=== PATIENT | male | born 1960 | race Caucasian/White ===

== ENCOUNTER 2018-06-21 08:58 | Emergency (ER) | payer OTHER ==
[2018-06-21] MEDS ORDERED: FENTANYL CITR 100 MCG/2 ML ONE (10:07)
[2018-06-21] MEDS ORDERED: NA CHLORIDE 0.9% 1,000 ML ONE (10:08)
[2018-06-21 10:28] LABS: Absolute Lymphocytes (CBC) 1.4 K/uL (0.7-4.9); Absolute Monocytes 1.1 K/uL (0.1-1.3); Absolute Neutrophil 9.9 K/uL (1.8-8.0); Basophils % 0.5 % (0-1.3); Eosinophils % 0.8 % (0-4.4); Hematocrit 41.5 % (39.6-49.0); Lymphocytes % 11.1 % (15.3-44.8); MPV 7.7 fL (7.6-11.3); Monocytes % 8.8 % (3.3-12.3); RBC Red Blood Cell Count 4.59 M/uL (4.33-5.43)
[2018-06-21] MEDS ORDERED: CLINDAMYCIN INJ 300 MG in NA CHLORIDE 0.9% 50 ML IV ONE (10:30)
[2018-06-21 10:43] LABS: BUN Blood Urea Nitrogen 11 mg/dL (7-18); Bicarbonate 28 mmol/L (21-32); Glucose Level 116 mg/dL (74-106); Potassium 3.8 mmol/L (3.5-5.1); Sodium Level 139 mmol/L (136-145)
--- NOTE | 2018-06-21 10:57 | RAD REPORT ---
EXAM DESCRIPTION: Ann Oneal (2 Views)06/21/2018 10:28 am CLINICAL HISTORY: Chest swelling COMPARISON: None FINDINGS: The lungs appear clear of acute infiltrate. The heart is normal size IMPRESSION: No acute abnormalities displayed
--- NOTE | 2018-06-21 11:32 | RAD REPORT ---
EXAM DESCRIPTION: CT - Soft Tissue Neck W/Contr - 06/21/2018 11:15 am CLINICAL HISTORY: Facial pain and swelling, toothache -right-side TECHNIQUE: During dynamic enhancement using 100 milliliters nonionic IV contrast, axial 5 millimeter thick images of the neck were obtained. All CT scans are performed using dose optimization technique as appropriate and may include automated exposure control or mA/KV adjustment according to patient size. FINDINGS: Mastoid air cells and paranasal sinuses are clear. There is left deviation of the anterior nasal septum and right deviation of the mid posterior aspect of the nasal septum. No globe or orbita l content abnormality. Intracranial portion of the examination is unremarkable. No facial fracture. No bone destructive process identifiable. Condyles of the mandible are normally p ositioned. No pharyngeal mucosal mass or asymmetry. Parapharyngeal fat is normal in appearance. No tonsillar or tongue base abnormality. Epiglottis is normal. No laryngeal abnormality seen. No periodontal abscess identified. There is dental decay present but no associated bone destruction o r convincing evidence for an associated soft tissue component. Patient does have edematous stranding in the fatty tissues on the right side of the face near the mass outer muscle and more inferiorly reji ng the mandible. The edema changes are both superficial and deep to the platysma. Right-side mass out er muscle appear slightly thickened and edematous when compared with the left. Pterygoid musculature on the medial margin of the mandible unremarkable and similar to the left side. Patient has several small reactive lymph nodes in the right side of the neck. No bulky lymphadenopath y. Parotid and submandibular gland tissue show no suspicious finding. No thyroid gland abnormality. IMPRESSION: Right-sided edematous/inflammatory stranding in the fatty tissues and edema change in th e right mass outer muscle. Patient has reactive lymph nodes in the right-side of the neck 12 mm or less in size. Dental decay is evident but no periodontal abscess identifiable.
--- NOTE | 2018-06-21 11:41 | EDPHYS ---
Physician Documentation [facility] Name: Keenan Tate Jr Age: 57 yrs Sex: Male : 1960 Arrival Date: 06/21/2018 Time: 09:01 Bed 20 Private MD: ED Physician Montrell Garrison HPI: 06/21 10:33 This 57 yrs old Male presents to ER via Ambulatory with complaints of Facial snw Swelling. 10:33 Onset: The symptoms/episode began/occurred suddenly, 3 day(s) ago, and became worse and snw became persistent. Associated signs and symptoms: Pertinent positives: fever. The patient has not experienced similar symptoms in the past. pt rec'd Bicillin went to dentist, was placed on amoxil. 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 - Social history:: Smoking status: Patient uses tobacco products, smokes one-half pack cigarettes per day, chewing tobacco. - Ebola Screening: : Patient denies travel to an Ebola-affected area in the 21 days before illness onset. ROS: 10:32 Constitutional: Negative for fever, chills, and weight loss, Eyes: Negative for injury, snw pain, redness, and discharge, Neck: Negative for injury, pain, and swelling, Cardiovascular: Negative for chest pain, palpitations, and edema, Respiratory: Negative for shortness of breath, cough, wheezing, and pleuritic chest pain, Abdomen/GI: Negative for abdominal pain, nausea, vomiting, diarrhea, and constipation, Back: Negative for injury and pain, : Negative for injury, bleeding, discharge, and swelling, MS/Extremity: Negative for injury and deformity, Skin: Negative for injury, rash, and discoloration, Neuro: Negative for headache, weakness, numbness, tingling, and seizure. 10:32 ENT: Positive for dental pain. Exam: 10:28 Constitutional: This is a well developed, well nourished patient who is awake, alert, snw and in no acute distress. Eyes: Pupils equal round and reactive to light, extra-ocular motions intact. Lids and lashes normal. Conjunctiva and sclera are non-icteric and not injected. Cornea within normal limits. Periorbital areas with no swelling, redness, or edema. Neck: Trachea midline, no thyromegaly or masses palpated, and no cervical lymphadenopathy. Supple, full range of motion without nuchal rigidity, or vertebral point tenderness. No Meningismus. Chest/axilla: Normal chest wall appearance and motion. Nontender with no deformity. No lesions are appreciated. 10:28 Abdomen/GI: Soft, non-tender, with normal bowel sounds. No distension or tympany. No guarding or rebound. No evidence of tenderness throughout. Back: No spinal tenderness. No costovertebral tenderness. Full range of motion. Skin: Warm, dry with normal turgor. Normal color with no rashes, no lesions, and no evidence of cellulitis. MS/ Extremity: Pulses equal, no cyanosis. Neurovascular intact. Full, normal range of motion. Neuro: Awake and alert, GCS 15, oriented to person, place, time, and situation. Cranial nerves II-XII grossly intact. Motor strength 5/5 in all extremities. Sensory grossly intact. Cerebellar exam normal. Normal gait. Psych: Awake, alert, with orientation to person, place and time. Behavior, mood, and affect are within normal limits. 10:28 Head/face: Noted is swelling, that is moderate, of the right jaw, right cheek and right mandible. 10:28 ENT: External ear(s): are unremarkable, Ear canal(s): are normal, TM's: are normal, Nose: is normal, Mouth: is normal, (-) trismus Dental exam: dental caries, that is moderate, diffusely. 10:28 Cardiovascular: Rate: tachycardic, Rhythm: regular, Heart sounds: normal. 10:28 ECG was reviewed by the Attending Physician. Vital Signs: 09:09 BP 136 / 88; Pulse 111; Resp 18; Temp 97.4(TE); Pulse Ox 96% on R/A; Pain 10/10; tw2 09:09 tw2 10:23 BP 139 / 85; Pulse 89; Resp 18; Pulse Ox 98% ; bp 11:22 BP 131 / 80; Pulse 96; Resp 18; Pulse Ox 96% on R/A; mh5 12:01 BP 139 / 80; Pulse 99; Resp 16; Pulse Ox 97% ; bp 09:09 "a 12 " tw2 MDM: 09:25 Patient medically screened. snw 11:46 Data reviewed: vital signs, nurses notes. Data interpreted: Pulse oximetry: on room air snw is 96 %. Interpretation: acceptable. Counseling: I had a detailed discussion with the patient and/or guardian regarding: the historical points, exam findings, and any diagnostic results supporting the discharge/admit diagnosis, the presence of at least one elevated blood pressure reading (>120/80) during this emergency department visit, lab results, radiology results, the need for outpatient follow up, to return to the emergency department if symptoms worsen or persist or if there are any questions or concerns that arise at home. Special discussion: I have referred the patient to see his PCP for further evaluation of high blood pressure. I discussed in detail with the patient the higher chance of wound infection based on his presenting history. Based on the history and exam findings, there is no indication for further emergent testing or inpatient evaluation. I discussed with the patient/guardian the need to see a dentist for further evaluation of the symptoms. I discussed with the patient/guardian the need to see the primary care provider for further evaluation of the symptoms. 06/21 09:49 Order name: Blood Culture* snw 06/21 09:49 Order name: CBC with Diff; Complete Time: 10:56 snw 06/21 09:26 Order name: Chest Pa And Lat (2 Views) XRAY; Complete Time: 11:19 snw 06/21 09:49 Order name: Chem 7; Complete Time: 10:51 snw 06/21 09:49 Order name: Sed Rate; Complete Time: 10:56 snw 06/21 09:49 Order name: Procalcitonin; Complete Time: 10:57 snw 06/21 09:49 Order name: EKG; Complete Time: 09:50 snw 06/21 09:49 Order name: EKG - Nurse/Tech; Complete Time: 10:23 snw 06/21 10:51 Order name: Soft Tissue Neck W/Contr CT; Complete Time: 11:34 snw EC:28 Rate is 97 beats/min. Rhythm is regular. QRS Barney is Normal. NM interval is normal. QRS snw interval is normal. QT interval is normal. No Q waves. T waves are Normal. Clinical impression: Normal ECG. Administered Medications: 10:00 Drug: NS 0.9% 1000 ml Route: IV; Rate: 1 bolus; Site: right antecubital; bp 11:58 Follow up: IV Status: Completed infusion; IV Intake: 1000ml bp 10:00 Drug: fentaNYL (PF) 50 mcg Route: IVP; Site: right antecubital; bp 11:47 Follow up: Response: Pain is decreased bp 10:43 Drug: Clindamycin 300 mg Route: IVPB; Infused Over: 30 mins; Site: right antecubital; bp 11:58 Follow up: IV Status: Completed infusion; IV Intake: 100ml bp 11:45 Drug: Decadron - Dexamethasone 10 mg Route: IVP; Site: right antecubital; bp 11:58 Follow up: Response: No adverse reaction bp Disposition: 20:37 Co-signature as Attending Physician, Montrell Garrison MD Available for consultation at ps1 all times . Disposition: 06/21/18 11:40 Discharged to Home. Impression: Cellulitis of face. - Condition is Stable. - Discharge Instructions: Cellulitis, Adult, Dental Caries, Adult, Heat Therapy. - Prescriptions for Clindamycin HCl 300 mg Oral Capsule - take 1 capsule by ORAL route every 6 hours for 10 days; 40 capsule. Tylenol- Codeine #3 300-30 mg Oral Tablet - take 2 tablets by ORAL route every 6 hours As needed; 16 tablet. Medrol (Elbert) 4 mg Oral Tablets, Dose Pack - take 1 tablet by ORAL route as directed - follow package instructions; 1 packet. - Work release form, Medication Reconciliation Form, Thank You Letter, Antibiotic Education, Prescription Opioid Use form. - Follow up: Private Physician; When: 2 - 3 days; Reason: Recheck today's complaints, Continuance of care, Re-evaluation by your physician. Follow up: Emergency Department; When: As needed; Reason: Worsening of condition. Signatures: Dispatcher [employer] Sonam Ramey, MAGO PLASMA TABLE OPERATOR-Low Corrine Orta, RN RN tw2 Viral Carrasco, RN RN Montrell Melgar MD MD ps1 Corrections: (The following items were deleted from the chart) 12:02 11:40 06/21/2018 11:40 Discharged to Home. Impression: Cellulitis of face. Condition is bp Stable. Forms are Medication Reconciliation Form, Thank You Letter, Antibiotic Education, Prescription Opioid Use. Follow up: Private Physician; When: 2 - 3 days; Reason: Recheck today's complaints, Continuance of care, Re-evaluation by your physician. Follow up: Emergency Department; When: As needed; Reason: Worsening of condition. snw
--- NOTE | 2018-06-21 11:41 | ER ---
Nurse's Notes [facility] Name: Keenan Tate Jr Age: 57 yrs Sex: Male : 1960 Arrival Date: 06/21/2018 Time: 09:01 Bed 20 Private MD: Diagnosis: Cellulitis of face Presentation: 06/21 09:07 Presenting complaint: Significant other states: this past week, he started having a tw2 tooth ache, after it started swelling we went to ER [place] got on antibiotic, went to dentist yesterday and he wanted him to come to ER again, his neck and face is more swollen, he feels like his nose is swelling shut and up into his ear, its getting worse and not better. Transition of care: patient was not received from another setting of care. Onset of symptoms was June 21, 2018. Risk Assessment: Do you want to hurt yourself or someone else? Patient reports no desire to harm self or others. Initial Sepsis Screen: Does the patient meet any 2 criteria? No. Patient's initial sepsis screen is negative. Does the patient have a suspected source of infection? No. Patient's initial sepsis screen is negative. Care prior to arrival: None. 09:07 Method Of Arrival: Ambulatory tw2 09:07 Acuity: PAULINA 4 tw2 Triage Assessment: 09:10 General: Appears uncomfortable, Behavior is calm, cooperative, appropriate for age, tw2 Smells of cigarette smoke. Pain: Complains of pain in right cheek, right ear, right moravian and right jaw. 09:22 EENT: No deficits noted. Neuro: Level of Consciousness is awake, alert, obeys commands, bp Oriented to person, place, time, situation, Appropriate for age. Cardiovascular: No deficits noted. Respiratory: Airway is patent Respiratory effort is even, unlabored, Respiratory pattern is regular, symmetrical. GI: No signs and/or symptoms were reported involving the gastrointestinal system. Derm: Abscess located on face and right jaw and right moravian and right ear and right cheek. Musculoskeletal: Circulation, motion, and sensation intact. Range of motion: intact in all extremities. 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 - Social history:: Smoking status: Patient uses tobacco products, smokes one-half pack cigarettes per day, chewing tobacco. - Ebola Screening: : Patient denies travel to an Ebola-affected area in the 21 days before illness onset. Screenin:40 Abuse screen: Denies threats or abuse. Denies injuries from another. Nutritional bp screening: No deficits noted. Tuberculosis screening: No symptoms or risk factors identified. Fall Risk None identified. Assessment: 09:15 General: SEE TRIAGE NOTE. bp 10:24 Reassessment: PT TO RAD WITH RN NEUROLOGY. bp 11:59 Reassessment: PT D/C HOME AMBULATORY WITH FAMILY, DX WITH CELLULITIS OF FACE. bp Vital Signs: 09:09 BP 136 / 88; Pulse 111; Resp 18; Temp 97.4(TE); Pulse Ox 96% on R/A; Pain 10/10; tw2 09:09 tw2 10:23 BP 139 / 85; Pulse 89; Resp 18; Pulse Ox 98% ; bp 11:22 BP 131 / 80; Pulse 96; Resp 18; Pulse Ox 96% on R/A; mh5 12:01 BP 139 / 80; Pulse 99; Resp 16; Pulse Ox 97% ; bp 09:09 "a 12 " tw2 ED Course: 09:01 Patient arrived in ED. as 09:09 Triage completed. tw2 09:10 Arm band placed on. tw2 09:15 Viral Carrasco, BRYAN is Primary Nurse. bp 09:25 Sonam Huertas FNP-C is PHCP. snw 09:25 Montrell Garrison MD is Attending Physician. snw 09:40 Patient has correct armband on for positive identification. Bed in low position. Call bp light in reach. Side rails up X2. 10:00 Inserted saline lock: 20 gauge in right antecubital area, using aseptic technique. bp Blood collected. 10:20 Patient moved to radiology via wheelchair. jb2 10:22 EKG done, by carpet cleaning technician. reviewed by Sonam MERCEDES. at1 10:27 X-ray completed. Patient tolerated procedure well. Patient moved back from radiology. jb2 10:28 Chest Pa And Lat (2 Views) XRAY In Process Unspecified. EDMS 11:10 Soft Tissue Neck W/Contr CT In Process Unspecified. EDMS 12:00 No provider procedures requiring assistance completed. IV discontinued, intact, bp bleeding controlled, No redness/swelling at site. Pressure dressing applied. Administered Medications: 10:00 Drug: NS 0.9% 1000 ml Route: IV; Rate: 1 bolus; Site: right antecubital; bp 11:58 Follow up: IV Status: Completed infusion; IV Intake: 1000ml bp 10:00 Drug: fentaNYL (PF) 50 mcg Route: IVP; Site: right antecubital; bp 11:47 Follow up: Response: Pain is decreased bp 10:43 Drug: Clindamycin 300 mg Route: IVPB; Infused Over: 30 mins; Site: right antecubital; bp 11:58 Follow up: IV Status: Completed infusion; IV Intake: 100ml bp 11:45 Drug: Decadron - Dexamethasone 10 mg Route: IVP; Site: right antecubital; bp 11:58 Follow up: Response: No adverse reaction bp Intake: 11:58 IV: 1000ml; Total: 1000ml. bp 11:58 IV: 100ml; Total: 1100ml. bp Outcome: 11:40 Discharge ordered by . snw 12:00 Discharged to home ambulatory, with family. bp 12:00 Condition: stable 12:00 Discharge instructions given to patient, Instructed on discharge instructions, follow up and referral plans. medication usage, Demonstrated understanding of instructions, follow-up care, medications, Prescriptions given X 3. 12:02 Patient left the ED. bp Signatures: Dispatcher [employer] EDMS Sonam Huertas, MANAGER VALUATION-C MANAGER VALUATION-Csnw Tang Osorio Amelia as Gonzales, Amanda, deli cook EKG Tat1 Corrine Orta, RN RN tw2 Evelyn Belle [facility] Viral Carrasco, RN RN bp
[2018-06-21] MEDS ORDERED: DEXAMETHASONE 10 MG/ML VIAL ONE (12:02)
--- NOTE | 2018-06-21 21:40 | EKG ---
Test Date: 2018-06-21 Test Time: 10:15:17 Water Filter Cleaner: SEEMA MEASUREMENT RESULTS: Intervals: Rate: 97 SD: 176 QRSD: 92 QT: 334 QTc: 424 [place]: P: 56 SD: 176 QRS: 19 T: 41 INTERPRETIVE STATEMENTS: Normal sinus rhythm Normal ECG No previous ECG available for comparison Electronically Signed On 06-21-18 21:38:27 CDT by Jordan Givens
== END 2018-06-21 12:02 | disposition home or self-care (01) ==
LOC: ER 08:58
DX: L03.211 Cellulitis of face (principal); I10 Essential (primary) hypertension
CPT/HCPCS: 36415; 70491; 71046; 80048; 84145; 85025; 85652; 87040; 93005; J1100; J3010; J7030; Q9967